=== PATIENT | female | born 1990 | race Caucasian/White ===

== ENCOUNTER 2021-04-23 13:25 | Emergency (ER) | payer OTHER, SELFPAY ==
[2021-04-23 13:38] VITALS: BP 111/64; PULSE 102; RESP 16; TEMP 37.1; O2SAT 100
--- NOTE | 2021-04-23 14:05 | ED.EAR ---
HPI - Ear Problem General Chief complaint: Ear Stated complaint: Ear Pain Time Seen by Provider: 04/23/21 14:05 Source: patient Mode of arrival: ambulatory History of Present Illness HPI Narrative: Patient presents with right ear pain. Patient states she recently had a cold and now has right ear pain. No drainage from her ear no dizziness no fever no other complaints at this time. MD Complaint: ear pain Related Data Home Medications Medication Instructions Recorded Confirmed Iud 06/14/19 budesonide-formoterol [Symbicort] INHALATION 06/14/19 buspirone 10 mg PO DAILY 06/14/19 04/23/21 lisdexamfetamine [Vyvanse] 40 mg PO DAILY 06/14/19 04/23/21 omega 7-nuk-nnd-fish oil [Fish Oil] 1 cap PO DAILY 06/14/19 04/23/21 venlafaxine 75 mg PO DAILY 06/14/19 venlafaxine mg PO 06/14/19 Allergies Allergy/AdvReac Type Severity Reaction Status Date / Time erythromycin base Allergy Unknown Rash Verified 05/08/18 17:57 Review of Systems Review of Systems: CONSTITUTIONAL: Denies fever, chills, or sweats. EYES: Denies visual changes, redness, or discharge. ENT: Denies rhinorrhea, congestion, sore throat, or otalgia. CARDIOVASCULAR: Denies chest pain, palpitations, or edema. RESPIRATORY: Denies cough or dyspnea. GASTROINTESTINAL: Denies abdominal pain, nausea, vomiting, or diarrhea. GENITOURINARY: Denies dysuria or hematuria. SKIN: Denies rash or itching. MUSCULOSKELETAL: Denies back pain, joint pain, or myalgia. NEUROLOGIC: Denies headache, numbness, or weakness. PSYCHIATRIC: Denies anxiety or depression. PMFSH Comments At time of signature, agree with nursing past medical, surgical, social and family history. There is no relevant family history pertinent to the presenting complaint Exam Narrative: GENERAL: Well-appearing, well-nourished, and in no acute distress. HEAD: Normocephalic, atraumatic. EYES: PERRLA and EOMI. ENT: Nares clear, no rhinorrhea or epistaxis. Mucous membranes moist. Moderate erythremia to right canal right TM opaque no erythremia to left canal dullness to left TM NECK: Supple. CHEST: Clear to auscultation. No respiratory distress. HEART: Regular rate and rhythm. No murmur heard. Normal peripheral pulses. ABDOMEN: Soft, nontender, nondistended, normal active bowel sounds. EXTREMITIES: Normal range of motion. No edema. SKIN: Warm, dry, no rash. NEURO: No focal deficits. Alert and oriented x3. Miguel Coma Scale Eye Opening: Spontaneous 4 [place] Coma Scale Motor: Obeys Commands 6 Miguel Coma Scale Verbal: Oriented 5 Miguel Coma Scale Total 15 Course Vital Signs Vital signs: Vital Signs Temperature 37.1 C 04/23/21 13:38 Pulse Rate 102 H 04/23/21 13:38 Respiratory Rate 16 04/23/21 13:38 Blood Pressure 111/64 04/23/21 13:38 Pulse Oximetry 100 04/23/21 13:38 Temperature 37.1 C 04/23/21 13:38 Pulse Rate 102 H 04/23/21 13:38 Respiratory Rate 16 04/23/21 13:38 Blood Pressure 111/64 04/23/21 13:38 Pulse Oximetry 100 04/23/21 13:38 Medical Decision Making Differential Diagnosis Differential Diagnosis: Otitis media, otitis externa, URI, eustachian tube dysfunction Vital Signs Vital Signs: Vital Signs Temperature 37.1 C 04/23/21 13:38 Pulse Rate 102 H 04/23/21 13:38 Respiratory Rate 16 04/23/21 13:38 Blood Pressure 111/64 04/23/21 13:38 Pulse Oximetry 100 04/23/21 13:38 Temperature 37.1 C 04/23/21 13:38 Pulse Rate 102 H 04/23/21 13:38 Respiratory Rate 16 04/23/21 13:38 Blood Pressure 111/64 04/23/21 13:38 Pulse Oximetry 100 04/23/21 13:38 Critical Care Time Critical Care Time Critical Care Time: No Discharge Plan Discharge Clinical Impression: Otitis media Patient Disposition: Home, Self-Care Condition: Stable Instructions: Antibiotic Form, Ear Infection (AC) Additional Instructions: Use Flonase daily 2 puffs to each nostril 2 times a day Take Augmentin with food as directed until gone Tylenol and i
== END 2021-04-23 14:26 | disposition home or self-care (01) ==
PROVIDERS: Emergency Provider Nurse Practitioner Family
DX: H66.91 Otitis media, unspecified, right ear (principal); J45.909 Unspecified asthma, uncomplicated; N80.9 Endometriosis, unspecified; F90.9 Attention-deficit hyperactivity disorder, unspecified type
CPT/HCPCS: 99213; G0463

== ENCOUNTER 2021-10-06 15:05 | Emergency (ER) | payer OTHER, SELFPAY ==
[2021-10-06 15:14] VITALS: BP 131/76; PULSE 102; RESP 16; TEMP 37.1; O2SAT 98
--- NOTE | 2021-10-06 16:12 | ED.URI ---
HPI - URI/Sore Throat General Chief Complaint: Upper Respiratory Infection Stated Complaint: sore throat and ear pain Time Seen by Provider: 10/06/21 16:12 Source: patient History of Present Illness HPI Narrative: 5-day history 5 days sore throat hoarseness little hoarseness she was pressure 2 hours. Pressure decreased hearing it at home COVID test yesterday Ary daily Symbicort considering her history albuterol inhaler MD elicited complaint: sore throat and nasal congestion Related Data Home Medications Medication Instructions Recorded Confirmed buspirone 10 mg PO DAILY 06/14/19 10/06/21 lisdexamfetamine [Vyvanse] 40 mg PO DAILY 06/14/19 10/06/21 omega 3-bro-xbg-fish oil [Fish Oil] 1 cap PO DAILY 06/14/19 10/06/21 venlafaxine 75 mg PO DAILY 06/14/19 10/06/21 venlafaxine 150 mg PO DAILY 06/14/19 10/06/21 albuterol sulfate 2 puff INHALATION QID PRN 10/06/21 10/06/21 Allergies Allergy/AdvReac Type Severity Reaction Status Date / Time erythromycin base Allergy Unknown Rash Verified 10/06/21 15:20 Course Vital Signs Vital signs: Vital Signs Temperature 37.1 C 10/06/21 15:14 Pulse Rate 102 H 10/06/21 15:14 Respiratory Rate 16 10/06/21 15:14 Blood Pressure 131/76 10/06/21 15:14 Pulse Oximetry 98 10/06/21 15:14 Temperature 37.1 C 10/06/21 15:14 Pulse Rate 102 H 10/06/21 15:14 Respiratory Rate 16 10/06/21 15:14 Blood Pressure 131/76 10/06/21 15:14 Pulse Oximetry 98 10/06/21 15:14 MDM - URI/Sore Throat Lab Data Labs: Strep Screen Presumptive Negative *(Reference Range: Negative)* Discharge Plan Discharge Prescriptions: No Action venlafaxine 75 mg capsule,extended release 24hr 75 mg PO DAILY RF: 0 venlafaxine 150 mg capsule,extended release 24hr 150 mg PO DAILY RF: 0 buspirone 10 mg tablet 10 mg PO DAILY RF: 0 Vyvanse 40 mg capsule 40 mg PO DAILY RF: 0 omega 6-mgs-yty-fish oil [Fish Oil] 1,000 mg (120 mg-180 mg) Capsule 1 cap PO DAILY RF: 0 albuterol sulfate 90 mcg/actuation Hfa Aerosol Inhaler 2 puff INHALATION QID PRN (Reason: sob) RF: 0
--- NOTE | 2021-10-06 16:23 | ED.URI ---
HPI - URI/Sore Throat General Chief Complaint: Upper Respiratory Infection Stated Complaint: sore throat and ear pain Time Seen by Provider: 10/06/21 16:12 Source: patient, RN notes reviewed and old records reviewed Mode of arrival: ambulatory Limitations: no limitations History of Present Illness HPI Narrative: 31 year old female who [facility] with complaints of 5 day history of sore throat and ear pain with increase pressure and decreased hearing noted today. Patient states that her throat aguayo and is sore and her left ear has pressure and is achy. She has been taking Ary and OTC and she has used her Symbicort inhale as prescribed and OTC pain mediation. Patient denies any acute cough, shortness of breath, or any wheezing.Patient reports that she took home COVID test yesterday that was negative, has had COVID vaccinations. MD elicited complaint: sore throat, rhinorrhea, nasal congestion and other (ear paileft and left sinus pressure) Pertinent past history: asthma Related Data Home Medications Medication Instructions Recorded Confirmed buspirone 10 mg PO DAILY 06/14/19 10/06/21 lisdexamfetamine [Vyvanse] 40 mg PO DAILY 06/14/19 10/06/21 omega 4-bwt-zww-fish oil [Fish Oil] 1 cap PO DAILY 06/14/19 10/06/21 venlafaxine 75 mg PO DAILY 06/14/19 10/06/21 venlafaxine 150 mg PO DAILY 06/14/19 10/06/21 albuterol sulfate 2 puff INHALATION QID PRN 10/06/21 10/06/21 Allergies Allergy/AdvReac Type Severity Reaction Status Date / Time erythromycin base Allergy Unknown Rash Verified 10/06/21 15:20 Review of Systems Review of Systems: CONSTITUTIONAL: Denies fever, chills, or sweats. EYES: Denies visual changes, redness, or discharge. ENT: positive rhinorrhea, congestion, sore throat, left otalgia. CARDIOVASCULAR: Denies chest pain, palpitations, or edema. RESPIRATORY: Denies acute cough or dyspnea. GASTROINTESTINAL: Denies abdominal pain, nausea, vomiting, or diarrhea. GENITOURINARY: Denies dysuria or hematuria. SKIN: Denies rash or itching. MUSCULOSKELETAL: Denies back pain, joint pain, or myalgia. NEUROLOGIC: Denies headache, numbness, or weakness. PSYCHIATRIC: Positive for history of anxiety or depression. All systems reviewed & are unremarkable except as noted in HPI and below PMFSH Past Medical History Medical History (Updated 10/07/21 @ 15:10 by Lita Kaur NP) ADHD (attention deficit hyperactivity disorder) Anxiety and depression Asthma Endometriosis Social History Social History (Updated 10/07/21 @ 14:54 by Lita Kaur NP) Smoking status: Never smoker Alcohol intake: unknown Substance use: never Living arrangements: with family Gender identity (if verbalized by the patient): Female Comments At time of signature, agree with nursing past medical, surgical, social and family history. There is no relevant family history pertinent to the presenting complaint Exam Narrative: GENERAL: Ill-appearing, well-nourished, and in no acute distress. HEAD: Normocephalic, atraumatic. EYES: PERRLA and EOMI. ENT: Nares inflamed, clear rhinorrhea no epistaxis. Mucous membranes moist. Right TM normal with good light reflex left TM red bulging painful, throat red with no exudates or lesions or tonsil enlargement NECK: Supple. No lymphadenopathy CHEST: Clear to auscultation. No respiratory distress. SaO2 98% on room air, no a cute cough or any dyspnea noted HEART: Regular rate and rhythm. No murmur heard. Normal peripheral pulses. ABDOMEN: Soft, nontender, nondistended, normal active bowel sounds. EXTREMITIES: Normal range of motion. No edema. SKIN: Warm, dry, no rash. NEURO: No focal deficits. Alert and oriented x3. Course Course Level of Care: Express Care Visit Vital Signs Vital signs: Vital Signs Temperature 37.1 C 10/06/21 15:14 Pulse Rate 102 H 10/06/21 15:14 Respiratory Rate 16 10/06/21 15:14 Blood Pressure 131/76 10/06/21 15:14 Pulse Oximetry 98 10/06/21 15:14
== END 2021-10-06 16:32 | disposition home or self-care (01) ==
PROVIDERS: Emergency Provider Registered Nurse; PCP Internal Medicine
DX: H65.02 Acute serous otitis media, left ear (principal); J06.9 Acute upper respiratory infection, unspecified; F90.9 Attention-deficit hyperactivity disorder, unspecified type; J45.909 Unspecified asthma, uncomplicated; N80.9 Endometriosis, unspecified; F41.9 Anxiety disorder, unspecified; F32.A Depression, unspecified
CPT/HCPCS: 87081; 87880; 99213; G0463

== ENCOUNTER 2021-12-27 15:33 | Emergency (ER) | payer OTHER, SELFPAY ==
--- NOTE | 2021-12-27 15:37 | ED.FEMALEGU ---
HPI - Female Genitourinary General Chief complaint: Urogenital-Female Stated complaint: Urinary Problem Time Seen by Provider: 12/27/21 15:39 History of Present Illness HPI Narrative: Patient is a 31-year-old female who presents the urgent care with complaints of a possible UTI. Patient states that she has been experiencing urgency, burning, frequency and right sided flank pain. States that symptoms started approximately a week ago and seem to have progressed. Patient also reports of possible blood whenever she wiped over the last 24 hours. States that she does have a history of UTIs but its been approximately a year. Patient has been taking Azo. Denies of any fever, nausea, vomiting or abdominal pain. No other acute complaints. No acute distress noted. Patient aware of the plan of care. Some parts of this dictation were generated by voice recognition software and may contain typographical and/or grammatical inaccuracies. Related Data Home Medications Medication Instructions Recorded Confirmed buspirone 10 mg tablet 10 mg PO DAILY 06/14/19 12/27/21 lisdexamfetamine 40 mg capsule 40 mg PO DAILY 06/14/19 12/27/21 (Vyvanse) omega 6-vxs-lnb-fish oil 1,000 mg 1 cap PO DAILY 06/14/19 12/27/21 (120 mg-180 mg) capsule (Fish Oil) venlafaxine 150 mg 150 mg PO DAILY 06/14/19 12/27/21 capsule,extended release 24 hr venlafaxine 75 mg capsule,extended 75 mg PO DAILY 06/14/19 12/27/21 release 24 hr albuterol sulfate 90 mcg/actuation 2 puff inhalation QID PRN sob 10/06/21 12/27/21 aerosol inhaler Allergies Allergy/AdvReac Type Severity Reaction Status Date / Time erythromycin base Allergy Unknown Rash Verified 12/27/21 15:46 Review of Systems Review of Systems: CONSTITUTIONAL: Denies fever, chills, or sweats. EYES: Denies visual changes, redness, or discharge. ENT: Denies rhinorrhea, congestion, sore throat, or otalgia. CARDIOVASCULAR: Denies chest pain, palpitations, or edema. RESPIRATORY: Denies cough or dyspnea. GASTROINTESTINAL: Denies abdominal pain, nausea, vomiting, or diarrhea. GENITOURINARY: Reports of urinary frequency, dysuria, urgency and bladder spasms with right flank pain SKIN: Denies rash or itching. MUSCULOSKELETAL: Denies back pain, joint pain, or myalgia. NEUROLOGIC: Denies headache, numbness, or weakness. All other systems reviewed are negative, except as documented in HPI. [facility] Past Medical History Medical History (Updated 12/27/21 @ 16:06 by ABUNDIO Hernandez) ADHD (attention deficit hyperactivity disorder) Anxiety and depression Asthma Endometriosis Social History Social History (Updated 10/07/21 @ 14:54 by Lita Kaur NP) Smoking status: Never smoker Alcohol intake: unknown Substance use: never Gender identity (if verbalized by the patient): Female Comments At the time of my signature, I reviewed and agree with the nursing past medical, surgical, social, and family history. There is no relevant family history pertinent to the patient complaint. Exam Narrative: GENERAL: This is a well-nourished, well-developed patient, in no apparent distress. HEAD: normocephalic, atraumatic. EYES: PERRL. Sclera clear/white. Vision is grossly intact. EARS: External ears normal NOSE: External nose normal with no obvious nasal discharge, nares without redness, no rhinorrhea. THROAT: Mucous membranes moist NECK: Neck supple CARDIOVASCULAR: Regular rate and rhythm without murmurs, gallops, or rubs. RESPIRATORY: Clear to auscultation. Breath sounds equal bilaterally. No wheezes, rales, or rhonchi. GASTROINTESTINAL: Abdomen soft, non-tender, nondistended. Bowel sounds are active. SKIN: warm, intact with no suspicious lesions or rash, good texture and turgor. NEURO: awake, alert, and oriented to person, place and time. There were no obvious focal neurologic abnormalities. EXTREMITIES: No clubbing, cyanosis, or edema. BACK: Mild right CVA tenderness Course Course Level of
[2021-12-27 15:38] VITALS: BP 135/91; PULSE 114; RESP 14; TEMP 36.9; O2SAT 100
== END 2021-12-27 16:12 | disposition home or self-care (01) ==
PROVIDERS: Emergency Provider Nurse Practitioner Family
DX: N39.0 Urinary tract infection, site not specified (principal); J45.909 Unspecified asthma, uncomplicated; N80.9 Endometriosis, unspecified; F90.9 Attention-deficit hyperactivity disorder, unspecified type; F41.9 Anxiety disorder, unspecified; F32.A Depression, unspecified
CPT/HCPCS: 81003; 87077; 87086; 87088; 99213; G0463

== ENCOUNTER 2023-08-20 12:56 | Emergency (ER) | payer OTHER, SELFPAY ==
[2023-08-20 13:09] VITALS: BP 149/85; PULSE 115; RESP 16; TEMP 36.5; O2SAT 99
--- NOTE | 2023-08-20 13:36 | ED.URI ---
HPI - URI/Sore Throat General Chief Complaint: Upper Respiratory Infection Stated Complaint: flu/sinus Time Seen by Provider: 08/20/23 13:26 Source: patient and RN notes reviewed Mode of arrival: ambulatory Limitations: no limitations History of Present Illness HPI Narrative: Patient presents today with a one-week history of nasal congestion, sinus pressure, sore throat, fatigue, body aches, subjective fever with mild cough. She has tried Robitussin, cold and flu medicine, Benadryl, Tylenol with mild relief. States symptoms have been worsening. Related Data Home Medications Medication Instructions Recorded Confirmed buspirone 10 mg tablet 10 mg PO DAILY 06/14/19 08/20/23 omega 6-ebw-fej-fish oil 1,000 mg 1 cap PO DAILY 06/14/19 08/20/23 (120 mg-180 mg) capsule (Fish Oil) venlafaxine 150 mg 300 mg PO DAILY 06/14/19 08/20/23 capsule,extended release 24 hr albuterol sulfate 90 mcg/actuation 2 puff inhalation QID PRN sob 10/06/21 08/20/23 aerosol inhaler Allergies Allergy/AdvReac Type Severity Reaction Status Date / Time erythromycin base Allergy Unknown Rash Verified 12/27/21 15:46 Review of Systems Review of Systems: CONSTITUTIONAL: + body aches, fatigue, subjective fever EYES: Denies visual changes, redness, or discharge. ENT: Denies rhinorrhea, otalgia.+ congestion, sinus pressure, sore throat CARDIOVASCULAR: Denies chest pain, palpitations, or edema. RESPIRATORY: Denies dyspnea.+ cough GASTROINTESTINAL: Denies abdominal pain, nausea, vomiting, or diarrhea. GENITOURINARY: Denies dysuria or hematuria. SKIN: Denies rash, itching, or wounds. MUSCULOSKELETAL: Denies back pain, joint pain, or myalgia. NEUROLOGIC: Denies headache, numbness, tingling, or weakness. PSYCH: Denies depression or anxiety. [facility] Past Medical History Medical History ADHD (attention deficit hyperactivity disorder) Anxiety and depression Asthma Endometriosis Social History Social History Smoking status: Never smoker Alcohol intake: unknown Substance use: never Living arrangements: with family Gender identity (if verbalized by the patient): Female Comments At time of signature, I have reviewed and agree with nursing past medical, surgical, social and family history unless otherwise noted. Please see nursing chart for further information. There is no relevant family history pertinent to the presenting complaint Exam Narrative: GENERAL: Mildly ill-appearing, well-nourished, and in no acute distress. HEAD: Normocephalic, atraumatic. EYES: EOMI. No redness or drainage. Conjunctivae normal. ENT: Mucous membranes pink and moist. Nares congested. No rhinorrhea. TMs normal bilaterally. Throat normal with purulent postnasal drainage. Maxillary sinus tenderness bilaterally. Uvula midline. NECK: Normal AROM. Supple. No lymphadenopathy. CHEST: No respiratory distress. Clear to auscultation. HEART: Regular rate and rhythm. No murmur appreciated. EXTREMITIES: Normal range of motion. No edema. SKIN: Warm, dry, no rash. Capillary refill normal. Normal skin turgor. NEURO: No focal deficits. Alert and oriented x3. Gait steady. PSYCH: Normal affect. No signs of depression or anxiety. Course Course Level of Care: Express Care Visit Vital Signs Vital signs: Vital Signs Temperature 97.7 F 08/20/23 13:09 Pulse Rate 115 H 08/20/23 13:09 Respiratory Rate 16 08/20/23 13:09 Blood Pressure 149/85 H 08/20/23 13:09 Pulse Oximetry 99 08/20/23 13:09 Oxygen Delivery Room Air 08/20/23 13:09 Temperature 97.7 F 08/20/23 13:09 Pulse Rate 115 H 08/20/23 13:09 Respiratory Rate 16 08/20/23 13:09 Blood Pressure 149/85 H 08/20/23 13:09 Pulse Oximetry 99 08/20/23 13:09 Oxygen Delivery Room Air 08/20/23 13:09 Reviewed MDM - URI/Sore Throat MDM Narrative [facility]
== END 2023-08-20 13:45 | disposition home or self-care (01) ==
PROVIDERS: Emergency Provider Nurse Practitioner; PCP Family Medicine
DX: J01.00 Acute maxillary sinusitis, unspecified (principal); J45.909 Unspecified asthma, uncomplicated; N80.9 Endometriosis, unspecified; F41.9 Anxiety disorder, unspecified; F32.A Depression, unspecified
CPT/HCPCS: 87081; 87880; 99213; G0463

== ENCOUNTER 2024-01-31 18:48 | Emergency (ER) | payer OTHER, SELFPAY ==
[2024-01-31 19:10] VITALS: BP 116/75; PULSE 100; RESP 18; TEMP 36.9; O2SAT 99
--- NOTE | 2024-01-31 23:26 | ED.EAR ---
HPI - Ear Problem General Chief complaint: Ear Stated complaint: Left Earache Time Seen by Provider: 01/31/24 20:08 Source: patient, RN notes reviewed and old records reviewed Mode of arrival: ambulatory Limitations: no limitations History of Present Illness HPI Narrative: 33-year-old female to Express Care for complaint of left ear discomfort for 2 days. Patient reports that she wears ear plugs nightly while she sleeps because her snores. Patient states that she does really where the ear plugs and realizes that she needs to change them more often. Patient denies difficulty hearing, otic discharge, fever, headache, dizziness, pertinent medical history. Patient able to tolerate fluids by mouth. Respirations even and nonlabored. Patient in no acute distress. Related Data Home Medications Medication Instructions Recorded Confirmed omega 1-qua-eky-fish oil 1,000 mg 1 cap PO DAILY 06/14/19 01/31/24 (120 mg-180 mg) capsule (Fish Oil) multivit with minerals-iron 18 1 tablet PO DAILY 01/31/24 01/31/24 mg-folic ac 400 mcg-vit K 25 mcg tablet (Adults Multivitamin) venlafaxine 150 mg 150 mg PO DAILY 01/31/24 01/31/24 capsule,extended release 24 hr venlafaxine 75 mg capsule,extended 75 mg PO DAILY 01/31/24 01/31/24 release 24 hr Allergies Allergy/AdvReac Type Severity Reaction Status Date / Time erythromycin base Allergy Unknown Rash Verified 01/31/24 19:21 Review of Systems Review of Systems: All systems reviewed & are unremarkable except as noted in HPI and below Constitutional: Constitutional: Reports no additional constitutional complaints Eyes: Eyes: Reports no additional eye complaints ENT: Reports as per HPI, Reports Normal hearing present, Denies ear discharge and Reports otalgia ( Left) Cardiovascular: Cardiovascular: Reports no additional cardiovascular complaints, Denies chest pain and Denies dyspnea Respiratory: Respiratory: Reports no additional respiratory complaints, Denies cough and Denies dyspnea Musculoskeletal: Musculoskeletal: Reports no additional musculoskeletal complaints Neurologic: Reports system reviewed and no additional complaints, except as documented Psychiatric: Psychiatric: Reports no additional psychiatric complaints PMFSH Past Medical History Medical History ADHD (attention deficit hyperactivity disorder) Anxiety and depression Asthma Endometriosis Social History Social History Smoking status: Never smoker Alcohol intake: unknown Substance use: never Living arrangements: with family Gender identity (if verbalized by the patient): Female Comments At the time of my signature, I reviewed and agree with the nursing past medical, surgical, social, and family history. There is no relevant family history pertinent to the patient complaint. Exam Const: General: cooperative, healthy appearing, comfortable, no acute distress, alert and well nourished Nutritional Appearance: well nourished Orientation/consciousness: patient oriented x3 Limitations: no limitations HENMT: Head: normal to inspection Ears: Abnormal EAC present erythema on the left, edema on the left and EAC tenderness on the left Face/Nose/Sinus: Normal external nose present, Normal nares present, normal facial exam, No erythema and No edema Face and sinus: normal facial exam, no erythema and no edema Mouth: Yes Normal oral and palatal mucosa present Eyes: General: appearance normal, both eyes and all related structures Neck: Neck: normal visual inspection, full ROM and no meningeal signs Lymphatic: no lymphadenopathy noted and no lymphedema noted Chest: Chest palpation & inspection: normal inspection of the chest Resp: Effort & Inspection: normal respiratory effort and able to speak in complete sentences Cardio: Jugular venous distension: no JVD Rate: regular
== END 2024-01-31 20:35 | disposition home or self-care (01) ==
PROVIDERS: Emergency Provider Nurse Practitioner Family; PCP Family Medicine
DX: H60.92 Unspecified otitis externa, left ear (principal); N80.9 Endometriosis, unspecified
CPT/HCPCS: 99213; G0463